=== PATIENT | female | born 1995 | race Caucasian/White ===

== ENCOUNTER 2022-05-18 10:41 | Emergency (ER) | payer OTHER ==
[~2022-05-18] VITALS: Ht 162.6 cm; Wt 143.2 kg
[2022-05-18 14:23] LABS: RSV AMPLIFICATION NEGATIVE (NEGATIVE)
[2022-05-18] MEDS ORDERED: KETOROLAC 30 MG/ML 1ML VIAL IV ONE (15:45)
[2022-05-18] MEDS ORDERED: ONDANSETRON 4MG 2ML VIAL IV ONE (15:45)
[2022-05-18] MEDS ORDERED: NS 1,000 ML IV ONE (15:45)
[2022-05-18 15:51] VITALS: BP 143/79
[2022-05-18 16:37] LABS: BASO % 0.1 % (0.0-1.0); EOS % 0.1 % (0.0-3.0); HEMATOCRIT 38.9 % (36.0-47.0); HEMOGLOBIN 12.8 g/dl (12.0-15.5); LYMPH # 1.1 10^3/uL (1.5-5.0); LYMPH % 7.3 % (24.0-44.0); MEAN CORPUSCULAR HEMOGLOBIN 28.4 pg (27.0-33.0); MEAN CORPUSCULAR HGB CONC 32.9 g/dl (32.0-36.5); MEAN CORPUSCULAR VOLUME 86.3 fl (80.0-96.0); MONO # 0.4 10^3/uL (0.0-0.8); MONO % 2.7 % (2.0-8.0); NEUTROPHILS % 88.8 % (36.0-66.0); PLATELET COUNT, AUTOMATED 234 10^3/uL (150-450); RED BLOOD COUNT 4.51 10^6/uL (4.00-5.40); WHITE BLOOD COUNT 14.6 10^3/uL (4.0-10.0)
[2022-05-18] MEDS ORDERED: ISOVUE-370 76% 100ML VIAL As Ordered ONE (16:52)
[2022-05-18 16:58] LABS: ALBUMIN 3.9 G/DL (3.2-5.2); BILIRUBIN,DIRECT 0.1 MG/DL (<0.4); BILIRUBIN,TOTAL 0.5 MG/DL (0.3-1.2); TOTAL PROTEIN 7.5 G/DL (5.7-8.2)
[2022-05-18] MEDS ORDERED: KETO10TAB PO ×2 (18:11→18:20)
[2022-05-18] MEDS ORDERED: FLOM0.4C39 PO ×2 (18:11→18:20)
== END 2022-05-18 18:23 | disposition home or self-care (01) ==
LOC: M ED 10:41
DX: N20.1 Calculus of ureter (principal); Z84.1 Family history of disorders of kidney and ureter; Z88.8 Allergy status to other drugs, medicaments and biological substances
CPT/HCPCS: 74177; 80047; 80076; 81000; 81015; 83690; 84702; 85025; 87631; 96374; 96375; 99284; J1885; J2405

== ENCOUNTER → 2025-05-22 | Outpatient (CLI) | payer OTHER ==
[~2025-05-22] MED LIST: E-Z-PAQUE 96% w/w SUSP 176 GM BTL As Ordered ONE; KETO10TAB PO; TAMS-18 PO
== END ==
LOC: M RAD 08:34
PROVIDERS: ATTEND Internal Medicine
DX: D13.30 Benign neoplasm of unspecified part of small intestine (principal); Z90.49 Acquired absence of other specified parts of digestive tract